=== PATIENT | female | born 1985 | race Caucasian/White ===

== ENCOUNTER 2018-01-21 19:22 | Emergency (ER) | payer MEDICARE, BC ==
[2018-01-21 19:43] VITALS: BP 122/74
--- NOTE | 2018-01-21 20:31 | EDM.PDOC ---
ED HPI GENERAL MEDICAL PROBLEM - General Stated Complaint: TINGLING IN LEFT ARM/FACE Time Seen by Provider: 01/21/18 19:47 Source of Information: Reports: Patient, Family () History Limitations: Reports: No Limitations - History of Present Illness INITIAL COMMENTS - FREE TEXT/NARRATIVE: Patient presents with tingling and numbness in left side of mouth, left eye and left finger tips. This started two days ago and has gradually worsened. Tonight her saw a little drooping of her mouth before they came in but this is better now. Patient denies any vision or hearing change. 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 She had left side symptoms prior to that finding also. She goes to [facility] every 3 months for MRI and follow up. - Related Data Allergies Allergy/AdvReac Type Severity Reaction Status Date / Time sulfamethoxazole Allergy Rash Verified 01/21/18 19:44 [From ] trimethoprim [From ] Allergy Rash Verified 01/21/18 19:44 coban Allergy Rash Uncoded 05/23/16 13:13 Home Meds: Home Meds Multivitamin with Minerals [Multiple Vitamin] 1 tab PO DAILY 04/09/14 [History] Calcium Carbonate [Calcium] 3 tab PO DAILY 05/19/16 [History] Ethinyl Estradiol/Drospirenone [Drospirenone-Ee 3-0.03 mg Tab] 1 each PO DAILY 05/19/16 [History] Magnesium Oxide [Magnesium] 3 cap PO BEDTIME 05/19/16 [History] Potassium Chloride [Klor-Con 10] 20 meq PO WITHBREAKFAST 05/19/16 [History] Lactobacillus Combination No.4 [Probiotic] 1 each PO DAILY 05/23/16 [History] Past Medical History HEENT History: Reports: Impaired Vision Cardiovascular History: Reports: None Respiratory History: Reports: None Gastrointestinal History: Reports: Chronic Constipation, Chronic Diarrhea Genitourinary History: Reports: None [employer] History: Reports: Musculoskeletal History: Reports: None Neurological History: Reports: Migraines Psychiatric History: Reports: Anxiety, Depression Endocrine/Metabolic History: Reports: None Hematologic History: Reports: None Immunologic History: Reports: None Oncologic (Cancer) History: Reports: Brain Dermatologic History: Reports: None - Infectious Disease History Infectious Disease History: Reports: None - Past Surgical History Head Surgeries/Procedures: Reports: Other (See Below) Endocrine Surgical History: Reports: None Neurological Surgical History: Reports: Other (See Below) Other Neurological Surgeries/Procedures: Brain surgery from cancer, caused L sided weakness Musculoskeletal Surgical History: Reports: Other (See Below) Other Musculoskeletal Surgeries/Procedures:: R rotator cuff tear. B SI joint pain Social & Family History - Caffeine Use Caffeine Use: Reports: Soda ED ROS GENERAL - Review of Systems Review Of Systems: See Below Constitutional: Denies: Fever, Chills HEENT: Denies: Ear Pain, Throat Swelling, Vision Change Respiratory: Denies: Shortness of Breath, Cough Cardiovascular: Denies: Chest Pain, Lightheadedness, Syncope Endocrine: Reports: No Symptoms GI/Abdominal: Reports: No Symptoms : Reports: No Symptoms Musculoskeletal: Denies: Neck Pain, Shoulder Pain, Arm Pain, Back Pain, Hand Pain, Leg Pain, Foot Pain Skin: Denies: Cyanosis, Jaundice, Mottled, Pallor, Diaphoresis Neurological: Reports: Numbness, Tingling, Weakness (left leg but no change from her baseline). Denies: Confusion, Dizziness, Headache, Seizure, Syncope, Tremors, Trouble Speaking, Difficulty Walking, Change in Speech Psychiatric: Denies: Agitation, Anxiety, Confusion ED EXAM, NEURO - Physical Exam Exam: See Below Exam Limited By: No Limitations General Appearance: Alert, WD/WN, No Apparent Distress Eye Exam: Bilateral Eye: EOMI, Normal Inspection, PERRL Ears: Normal External Exam, Normal Canal, Hearing Grossly Normal, Normal TMs. No: Hearing Loss Nose: Normal Inspection, No Blood Throat/Mouth: Normal Inspection, Normal Lips, Normal Voice, No Airway Compromise Head Exam: Atraumatic, Normocephalic Neck: Normal Inspection, Supple, Non-Tender, Full Range of Motion Respiratory/Chest: No Respiratory Distress, Lungs Clear, Normal Breath Sounds, No Accessory Muscle Use Cardiovascular: Regular Rate, Rhythm, No Murmur GI/Abdominal: No Distention Neurological: Alert, Normal Mood/Affect, Normal Dorsiflexion, CN II-XII Intact, Normal Plantar Flexion, Normal Gait, No Motor/Sensory Deficits (sensation to light touch of several points on face and extremities exhibits symmetric sensation but a subjective feeling or numbness and tingling in finger tips and left of mouth and eye.), Oriented x 3 Back Exam: Normal Inspection, Full Range of Motion. No: CVA Tenderness (L), CVA Tenderness (R) Extremities: Normal Range of Motion, Non-Tender, Normal Capillary Refill, Other (5/5 symmetric hand/arm/finger strength; 4.5/5 left leg strength compared to right which is her baseline) Psychiatric: Normal Affect, Normal Mood Skin Exam: Warm, Dry, Intact, Normal Color, No Rash Course - Vital Signs Last Recorded V/S: Last Vital Signs Temp 97.7 F 01/21/18 19:42 Pulse 101 H 01/21/18 19:42 Resp 18 01/21/18 19:42 BP 122/74 01/21/18 19:42 Pulse Ox 96 01/21/18 19:42 - Orders/Labs/Meds Labs: Laboratory Tests 01/21/18 01/21/18 Range/Units 20:30 20:30 WBC 11.00 H (5.00-10.00) 10^3/uL RBC 4.89 (3.80-5.50) 10^6/uL Hgb 14.5 (12.0-16.0) g/dL Hct 43.4 (37.0-47.0) % MCV 88.8 (82.0-92.0) fL MCH 29.7 (27.0-31.0) pg MCHC 33.4 (32.0-36.0) g/dL RDW 13.2 (11.5-14.5) % Plt Count 285 (150-400) 10^3/uL MPV 10.7 H (7.4-10.4) fL Add Manual Diff Yes Neutrophils % (Manual) 90 H (50-70) % Lymphocytes % (Manual) 6 L (20-40) % Monocytes % (Manual) 2 (2-8) % Eosinophils % (Manual) 2 (1-3) % Basophils % (Manual) 0 (0-1) % Absolute Neutrophils 9.9 Lymphocytes # (Manual) 0.66 Monocytes # (Manual) 0.22 Eosinophils # (Manual) 0.22 Basophils # (Manual) 0 Platelet Estimate Adequate Sodium 137 (136-145) mmol/L Potassium 4.1 (3.3-5.3) mmol/L Chloride 104 (98-115) mmol/L Carbon Dioxide 19.6 L (21.0-32.0) mmol/L Anion Gap 17.5 H (5-15) mmol/L BUN 14 (6-25) mg/dL Creatinine 0.60 (0.51-1.17) mg/dL Est Cr Clr Drug Dosing 115.16 mL/min Estimated GFR (MDRD) > 60 mL/min Glucose 175 mg/dL Calcium 9.0 (8.7-10.3) mg/dL Total Bilirubin 0.1 L (0.2-1.0) mg/dL AST 28 (15-37) U/L ALT 43 (12-78) U/L Alkaline Phosphatase 54 (46-116) IU/L Total Protein 8.0 (6.4-8.2) g/dL Albumin 3.39 (3.00-4.80) g/dL - Re-Assessments/Exams Free Text/Narrative Re-Assessment/Exam: 01/21/18 21:31 WBC and ANC are mildly elevated but electrolytes are normal. With no fever or other signs of infection will have her follow up with Dr. Platt tomorrow as she has scheduled. She will call the neurosurgeon tomorrow morning. I discussed this case with Dr. Platt who knows her well. We feel this should be evaluated further by her neurosurgeon but that it isn't emergent that she do it tonight. Patient discharged in stable condition. Departure - Departure Time of Disposition: 21:28 Disposition: Home, Self-Care 01 Condition: Good Clinical Impression: Tingling of face, Tingling of left arm and left side of face - Discharge Information Referrals: Valery Zhao MD [Primary Care Provider] - Additional Instructions: 1. Call your neurosurgeon's office and inform them of your symptoms the past few days to see what they advise. 2. Follow up with Dr. Paltt tomorrow as scheduled. 3. Return to ER as needed.
[2018-01-21 21:10] LABS: ANION GAP 17.5 mmol/L (5-15); CHLORIDE,CL 104 mmol/L (98-115); SODIUM,NA 137 mmol/L (136-145)
== END 2018-01-21 21:40 | disposition home or self-care (01) ==
LOC: KA.ED 19:22
DX: R20.2 Paresthesia of skin (principal)
CPT/HCPCS: 36415; 80053; 85025; 99284